=== PATIENT | male | born 1965 | race African-American/Black ===

== ENCOUNTER 2020-09-11 21:43 | Inpatient (IN) | payer OTHER ==
[~2020-09-11] VITALS: Ht 193 cm; Wt 128.8 kg
[2020-09-11 21:45] VITALS: BP 114/59
[2020-09-11 22:10] LABS: HEMATOCRIT 27.6 % (42.0-52.0); HEMOGLOBIN 8.7 gm/dL (14.0-18.0); MCHC 31.6 g/dL (28.0-37.0); MCV 85.4 fL (80.0-100.0); PLATELET COUNT 207 thou/uL (150-400); RBC 3.23 mil/uL (4.50-6.00); RDW 16.9 % (10.5-14.5); WBC 18.1 thou/uL (4.0-11.0)
[2020-09-11 22:19] LABS: CALCIUM 8.6 mg/dL (8.5-10.1); CREATININE 5.9 mg/dL (0.7-1.3); POTASSIUM 4.7 mmol/L (3.5-5.1)
[2020-09-11 22:28] LABS: BE(vivo) -5.3 mmol/L (-2 to +3); HCO3 19.1 mmol/L (22.0-26.0); PCO2 33.3 mmHg (35.0-45.0); PO2 76.9 mmHg (80.0-100.0); pH 7.377 (7.360-7.450); sO2 95.3 % (92.0-98.0)
[2020-09-11 22:29] LABS: URINE BILIRUBIN NEGATIVE (Negative); URINE BLOOD 3+ (Negative); URINE CLARITY SL CLOUDY; URINE COLOR YELLOW; URINE GLUCOSE-RANDOM* TRACE (Negative); URINE KETONES NEGATIVE (Negative); URINE LEUKOCYTES-REFLEX NEGATIVE (Negative); URINE NITRITE-REFLEX NEGATIVE (Negative); URINE PROTEIN (DIPSTICK) 3+ (Negative); URINE SPECIFIC GRAVITY 1.025 (1.005-1.035); URINE UROBILINOGEN 0.2 E.U./dl (0.2-1.0)
[2020-09-11 22:44] LABS: BACTERIA-REFLEX 1-9 Few /HPF (None Seen); CRYSTALS None Seen /LPF (None Seen); HYALINE CASTS 4-10 Moderate /LPF (None Seen); MUCUS >6 Heavy strn/LPF (None Seen); SQUAMOUS 0-3 Few /LPF (0-3); URINE WBC-REFLEX 0-5 Rare /HPF (0-5)
[2020-09-11 22:50] LABS: ABSOLUTE NEUTROPHILS 14.8 thou/uL (1.4-8.2); ANISOCYTOSIS 1+; PLATELET ESTIMATE NORMAL; POIKILOCYTOSIS 1+
[2020-09-12] VITALS (34 sets, daily range): BP systolic 120–158; BP diastolic 64–96
[2020-09-12 03:39] LABS: APTT 37.5 Seconds (24.5-32.8); INR 1.03; PROTIME 11.2 Seconds (10.5-12.1)
[2020-09-12 03:42] LABS: CALCIUM 8.3 mg/dL (8.5-10.1); CREATININE 6.1 mg/dL (0.7-1.3); POTASSIUM 5.2 mmol/L (3.5-5.1)
[2020-09-12 04:33] LABS: FIBRINOGEN > 860 mg/dL (201-437)
[2020-09-12 07:27] LABS: ABSOLUTE NEUTROPHILS 13.5 thou/uL (1.4-8.2); BASOPHILS 0.2 % (0.0-2.0); EOSINOPHILS 0.1 % (0.0-3.0); HEMOGLOBIN 7.5 gm/dL (14.0-18.0); LYMPHOCYTES 4.9 % (24.0-44.0); MCH 26.8 pg (26.0-34.0); MCHC 31.5 g/dL (28.0-37.0); MCV 85.3 fL (80.0-100.0); MONOCYTES 10.4 % (1.0-8.0); PLATELET COUNT 180 thou/uL (150-400); POLYS 84.4 % (36.0-66.0); RBC 2.81 mil/uL (4.50-6.00); RDW 17.5 % (10.5-14.5); WBC 15.9 thou/uL (4.0-11.0)
[2020-09-12 07:38] LABS: CALCIUM 7.4 mg/dL (8.5-10.1); CREATININE 5.8 mg/dL (0.7-1.3); POTASSIUM 4.9 mmol/L (3.5-5.1)
[2020-09-12 07:44] LABS: ALBUMIN 1.4 g/dL (3.4-5.0); TOTAL BILIRUBIN 0.3 mg/dL (0.2-1.0); TOTAL PROTEIN 5.9 g/dL (6.4-8.2)
--- NOTE | 2020-09-12 08:07 | NUR ---
AT 0200 received pt from ER, and contiuned care, admission assessments documented,IV fluids and insulin drip started, pratt inserted, labs drawn, following sepsis protocol.Pt febrile and shivering, tylenol supp given. Pt drowsy but arousable , able to follow commands, though forgetful.
[2020-09-12] MEDS ORDERED: ADVAIR 250-501 EACH INH (08:34)
[2020-09-12] MEDS ORDERED: ACETAMINOPHEN325 M1 PO (08:34)
[2020-09-12] MEDS ORDERED: LIPITOR40 MG PO (08:35)
[2020-09-12] MEDS ORDERED: AMLODIPINE BESY10 MG PO (08:35)
[2020-09-12] MEDS ORDERED: BENZTROPINE ME0.5 MG PO (08:36)
[2020-09-12] MEDS ORDERED: CHILDREN'S ZYRT10 M1 PO (08:37)
[2020-09-12] MEDS ORDERED: CLOZAPINE200 MG PO (08:38)
[2020-09-12] MEDS ORDERED: CATAPRES0.2 MG PO (08:38)
[2020-09-12] MEDS ORDERED: GABAPENTIN600 M1 PO (08:39)
[2020-09-12] MEDS ORDERED: HALDOL DECAN50 MG/M1 IM (08:41)
[2020-09-12] MEDS ORDERED: HYDRALAZINE 5050 MG PO (08:42)
[2020-09-12] MEDS ORDERED: IPRAT-ALBUT 0.5-3 ML INH (08:43)
[2020-09-12] MEDS ORDERED: LEVEMIR FL100 UNIT/2 SUBQ ×2 (08:44→08:45)
[2020-09-12] MEDS ORDERED: MEDROXYPROGESTER5 MG PO (08:46)
[2020-09-12] MEDS ORDERED: METOPROLOL TART25 MG PO (08:47)
[2020-09-12] MEDS ORDERED: MILK OF MA2400 MG/11 PO (08:47)
[2020-09-12] MEDS ORDERED: NOVOLOG100 UNIT/1 SUBQ ×2 (08:49→08:53)
[2020-09-12] MEDS ORDERED: MIRALAX17 GM PO (08:50)
[2020-09-12] MEDS ORDERED: PROAIR HFA8.5 GM INH (08:51)
[2020-09-12] MEDS ORDERED: SENNA8.6 MG PO (09:03)
[2020-09-12] MEDS ORDERED: STOOL SOFTENER100 M1 PO (09:04)
[2020-09-12] MEDS ORDERED: VISTARIL 25 MG25 M1 PO (09:05)
[2020-09-12] MEDS ORDERED: VITAMIN D250 MCG PO (09:09)
[2020-09-12] MEDS ORDERED: VITAMIN B-1100 M2 PO (09:09)
--- NOTE | 2020-09-12 11:07 | NUR ---
VAT CONSULTED TO PLACE CVL. RIGHT IJ 6FR TL JACC PLACED, TRIMMED 25 AND INSERTED 19CM. CXR FOR TIP LOCATION CONFIRMATION. RADIOLOGY REPORTS THAT TIP OVERLIES RIGHT ATRIUM. WILL PULL BACK 2CM AND RE-XRAY. PT TOLERATED WELL.
--- NOTE | 2020-09-12 11:24 | EKG ---
[address] [address] ELECTROCARDIOGRAM REPORT Name: ARAVIND MASSEY Room #: 238-P ADM IN M.R.#: [id number] Admission: 09/11/20 Attend Phys: Lennox Zepeda MD Discharge: Date of : 65 Report #: [id number] [facility] ED Test Date: 2020-09-11 Test Time: 22:06:55 Pat Name: ARAVIND MASSEY Department: Room: 238 Gender: M Western Philosophy Professor: : 1965 Requested By: Mariann Tapia Order Number: [id number] MD: Diogo Stein Measurements Intervals [place] Rate: 106 P: 48 IA: 129 QRS: 16 QRSD: 81 T: 35 QT: 321 QTc: 427 Interpretive Statements Sinus tachycardia No previous ECG available for comparison Electronically Signed On 09-12-2020 11:24:06 CDT by Diogo Stein [email or web address] <ELECTRONICALLY SIGNED> By: Diogo Stein MD 09/12/20 1124 [id number] Diogo Stein MD /EPI
[2020-09-12 11:27] LABS: ALBUMIN 1.4 g/dL (3.4-5.0); CALCIUM 7.8 mg/dL (8.5-10.1); CREATININE 5.9 mg/dL (0.7-1.3); PHOSPHORUS 3.7 mg/dL (2.6-4.7); POTASSIUM 5.1 mmol/L (3.5-5.1)
[2020-09-12 12:38] LABS: URINE BILIRUBIN NEGATIVE (Negative); URINE BLOOD 3+ (Negative); URINE CLARITY SL CLOUDY; URINE COLOR YELLOW; URINE GLUCOSE-RANDOM* TRACE (Negative); URINE KETONES NEGATIVE (Negative); URINE LEUKOCYTES NEGATIVE (Negative); URINE NITRITE NEGATIVE (Negative); URINE PROTEIN (DIPSTICK) 2+ (Negative); URINE UROBILINOGEN 0.2 E.U./dl (0.2-1.0)
[2020-09-12 12:48] LABS: PROT/CREAT RATIO 4.7; URINE CREATININE-RANDOM* 61.9 mg/dL
[2020-09-12 12:54] LABS: SQUAMOUS None Seen /LPF (0-3); URINE RBC >20 Many /HPF (NONE SEEN)
[2020-09-12 12:57] LABS: AMORPHOUS URATES Moderate /LPF (None Seen); CASTS None Seen /LPF (None Seen)
[2020-09-12 22:35] LABS: URINE BILIRUBIN NEGATIVE (Negative); URINE BLOOD 3+ (Negative); URINE CLARITY CLOUDY; URINE COLOR YELLOW; URINE GLUCOSE-RANDOM* NEGATIVE (Negative); URINE KETONES NEGATIVE (Negative); URINE LEUKOCYTES-REFLEX NEGATIVE (Negative); URINE NITRITE-REFLEX NEGATIVE (Negative); URINE PROTEIN (DIPSTICK) 3+ (Negative); URINE UROBILINOGEN 0.2 E.U./dl (0.2-1.0)
[2020-09-12 23:01] LABS: CELLULAR CASTS 0-3 Few /LPF (None Seen); COARSE GRANULAR CASTS 4-10 Moderate /LPF (None Seen); CRYSTALS None Seen /LPF (None Seen); FINE GRANULAR CASTS 0-3 Few /LPF (None Seen); HYALINE CASTS 0-3 Few /LPF (None Seen); MUCUS 0-3 Light strn/LPF (None Seen); SQUAMOUS 0-3 Few /LPF (0-3); URINE RBC >20 Many /HPF (NONE SEEN); URINE WBC-REFLEX 0-5 Rare /HPF (0-5)
[2020-09-13] VITALS (23 sets, daily range): BP systolic 122–176; BP diastolic 57–131
[2020-09-13 05:47] LABS: ABSOLUTE NEUTROPHILS 11.8 thou/uL (1.4-8.2); BASOPHILS 0.1 % (0.0-2.0); EOSINOPHILS 0.3 % (0.0-3.0); HEMOGLOBIN 7.5 gm/dL (14.0-18.0); LYMPHOCYTES 4.6 % (24.0-44.0); MCHC 31.5 g/dL (28.0-37.0); MCV 85.7 fL (80.0-100.0); MONOCYTES 9.2 % (1.0-8.0); PLATELET COUNT 188 thou/uL (150-400); POLYS 85.8 % (36.0-66.0); RBC 2.79 mil/uL (4.50-6.00); RDW 17.2 % (10.5-14.5); WBC 13.8 thou/uL (4.0-11.0)
[2020-09-13 05:57] LABS: CALCIUM 8.2 mg/dL (8.5-10.1); POTASSIUM 5.1 mmol/L (3.5-5.1)
--- NOTE | 2020-09-13 07:35 | NUR ---
PT A/O X2-3 WITH CONFUSION AND ANXIETY.FOLLOWS COMMANDS APPROPRIATELY PT HAVING INTERMITTENT EPISODES OF ANXIETY,BECOMES TACHYCARDIAC,HYPERTENSIVE AND TACHYPNEIC.ALSO NOTED CONSTANT NPC COUGH ALONG WITH WHEEZING THAT IS REQUIRING NEB TX.BREAST TRIMMER NOTIFIED,MEDS ORDERED,SEE JAMES ON MONITOR.ON O2 AT 2LITERS PNC.SATS [place].HANNY DD,LARGE AMOUNT OF URINE >1300.SOME OF THE HOME MEDS RESUMED.ASSESSMENT COMPLETED COMPLETED.WILL CONT TO MONITOR.
--- NOTE | 2020-09-13 08:00 | NUR ---
ASSUMMED CARE OF THIS PATIENT FROM ELENA AVERY AT 0700, PATIENT IS PULLING OFF O2 UNCOOPERATIVE, NON ESSENTIAL TREMORS NOTED,
--- NOTE | 2020-09-13 10:00 | NUR ---
O2 TITRATED PATIENT DESATING INTO THE UPPER 80'S. INSPIRATORY AND EXPIRATORY WHEEZING NOTED. COUGHING. PULLING OFF O2. REMIAINS UNCOOPERATIVE.
--- NOTE | 2020-09-13 12:20 | NUR ---
RT CALLED PATIENT RESP STATUS IS WORSENING, INSPIRATORY AND EXPIRATORY WHEEZING, UNCOOPERATIVE AND CONTINUALLY PULLING OFF O2, ATTEMPT TO REDIRECT
--- NOTE | 2020-09-13 14:18 | NUR ---
PATIENT PULLED OUT CENTRAL LINE AND O2 OFF. PRESSURE HELD AT SITE AND PATIENT PLACED ON 100% NRB MASK. DR SWAN NOTIFIED AND ORDERS RECEIVED. SOLU MEDROL GIVEN. PATIENT DOZES FOR A FEW MINUTES AND THEN IS PULLING OFF O2 AGAIN AND DESATING INTO THE 80'S
--- NOTE | 2020-09-13 15:10 | NUR ---
VAT CONSULTED FOR REPLACEMENT OF CVAD,SINCE PT PULLED IT OUT . PT REFUSED BECAME VERY AGGITATED AND DYSPNEIC. PT HAS PIV SO PLACED 2ND PIV. PT TOLERATED WELL.
--- NOTE | 2020-09-13 23:46 | NUR ---
PT BECOMING MORE RESTLESS AND UNDIRECTABLE,REMOVING OXYGEN CANNULA,O2 SATURATION POBE,IV LINES AND EVEN TELE.PT TRYING TO GET OUT OF THE BED FREQUENTLY REQUIRING RNS TO BE THERE ALMOST ALL THE TIME.HE BECOMES TACHYCARDIAC, TACHYPNEIC, AND AGITATED ADN YELLS OUT TO STAFF. .COLLEGE AND CAREER COUNSELOR NOTIFIED,ANXIETY MEDS GIVEN W/O ANY SIGNIFICANT CHANGE.RESTRAINTS APPLIED D/T PT COMPRISING MEDICAL HEALTH BY REMOVING OXYGEN CANNULA AND DESATS TO 70S AND HAVE INCREASED WHEEZING.REORIENTED SEVERAL TIMES BUT CONTINUES TO DO THE SAME THINGS.CURRENTLY RESTING IN BED,CALM AND QUIET.
[2020-09-14] VITALS (23 sets, daily range): BP systolic 117–189; BP diastolic 57–121
[2020-09-14 02:39] LABS: CALCIUM 8.3 mg/dL (8.5-10.1)
[2020-09-14 02:47] LABS: POTASSIUM 6.3 mmol/L (3.5-5.1)
[2020-09-14 05:49] LABS: ABSOLUTE NEUTROPHILS 18.1 thou/uL (1.4-8.2); BASOPHILS 0.3 % (0.0-2.0); HEMATOCRIT 25.2 % (42.0-52.0); HEMOGLOBIN 7.9 gm/dL (14.0-18.0); LYMPHOCYTES 3.7 % (24.0-44.0); MCH 26.9 pg (26.0-34.0); MCHC 31.5 g/dL (28.0-37.0); MCV 85.4 fL (80.0-100.0); MONOCYTES 1.5 % (1.0-8.0); PLATELET COUNT 218 thou/uL (150-400); POLYS 94.5 % (36.0-66.0); RBC 2.95 mil/uL (4.50-6.00); RDW 17.7 % (10.5-14.5); WBC 19.2 thou/uL (4.0-11.0)
[2020-09-14 06:57] LABS: POTASSIUM 6.3 mmol/L (3.5-5.1)
[2020-09-14 07:02] LABS: PLATELET ESTIMATE NORMAL
--- NOTE | 2020-09-14 11:57 | NUR ---
Chart review. Discussed during am rounds and los with hospitalist. LAWANDA, from [facility]. has NIKKIE Martini, office # [phone], cell # [phone]. He was able to dress himself, able to stand and transfer. Able to make his needs know. CM spoke with NIKKIE office, they were notified by [facility] when he was sent to hospital. Noted before am rounds, he was needing some assist with breakfast rt upper bilat ext with shakiness. o2 per nasal cannula. Will cont following as needed for dc needs.
--- NOTE | 2020-09-14 12:21 | EKG ---
[address] [place] [place] [address] ELECTROCARDIOGRAM REPORT Name: ARAVIND MASSEY Room #: 238-P ADM IN M.R.#: [id number] Admission: 09/11/20 Attend Phys: Lennox Zepeda MD Discharge: Date of : 65 Report #: [id number] [facility] Test Date: 2020-09-14 Test Time: 09:51:21 Pat Name: ARAVIND MASSEY Department: Room: 238 P Gender: M Certified Ophthalmic Technologist: KRYSTAL : 1965 Requested By: Trupti Momin Order Number: [id number] MD: Koffi Jolley Measurements Intervals [place] Rate: 85 P: 19 NC: 127 QRS: 7 QRSD: 94 T: 18 QT: 393 QTc: 468 Interpretive Statements Sinus rhythm Compared to ECG 09/11/2020 22:06:55 ST (T wave) deviation now present Sinus tachycardia no longer present Electronically Signed On 09-14-2020 12:21:06 CDT by Koffi Jolley [email or web address] <ELECTRONICALLY SIGNED> By: Koffi Jolley MD, [facility] 09/14/20 1221 0 Koffi Jolley MD, FACC /EPI
--- NOTE | 2020-09-14 12:33 | NUR ---
Pt only able to take 2 bites of lunch before coughing uncontrollably - had to spit out food. Concern for aspiration/need for speech consult in future.
[2020-09-14 15:32] LABS: CALCIUM 8.9 mg/dL (8.5-10.1); CREATININE 5.8 mg/dL (0.7-1.3); POTASSIUM 5.4 mmol/L (3.5-5.1)
--- NOTE | 2020-09-14 22:54 | NUR ---
Patient out of control, trying to remove all medical equipment and climbing out of bed. Orders received from NASREEN Lazaro for lorazepam. Unable to give though due to patient had removed all IV access. New orders received for IM medication. Patient calm and sedated now. Will continue to monitor.
[2020-09-15] VITALS (23 sets, daily range): BP systolic 128–172; BP diastolic 79–131
[2020-09-15 04:45] LABS: ABSOLUTE NEUTROPHILS 18.1 thou/uL (1.4-8.2); BASOPHILS 0.2 % (0.0-2.0); HEMOGLOBIN 7.9 gm/dL (14.0-18.0); LYMPHOCYTES 4.1 % (24.0-44.0); MCH 27.7 pg (26.0-34.0); MCHC 32.9 g/dL (28.0-37.0); MCV 84.2 fL (80.0-100.0); PLATELET COUNT 276 thou/uL (150-400); POLYS 92.7 % (36.0-66.0); RBC 2.84 mil/uL (4.50-6.00); RDW 17.4 % (10.5-14.5); WBC 19.5 thou/uL (4.0-11.0)
--- NOTE | 2020-09-15 05:39 | NUR ---
This RN and 3 other various RN's attempted to place peripheral IVs and none were successful. Will call IV team for line placement when they arrive.
[2020-09-15 09:34] LABS: ALBUMIN 1.6 g/dL (3.4-5.0); CALCIUM 9.4 mg/dL (8.5-10.1); CREATININE 6.2 mg/dL (0.7-1.3); POTASSIUM 4.9 mmol/L (3.5-5.1)
--- NOTE | 2020-09-15 09:49 | NUR ---
Nutrition: pt admitted with PNA, sepsis. Seen per dx. PMH: DM2, HTN, COPD, CKD4, schizophrenia. From a facility. No weight hx. Requires feeding due to tremors. Eats fairly well per nsg. Did have episode of choking/coughing after eating hamburger yesterday. ST evaled and diet downgraded to Pureed nectar thick for mild/moderate dysphagia. BG 291-38, on high dose SSI, glargine, also steroids aggravating BG. Magic cup was ordered, RD will D/C due to high sugar content and acceptable intake of meals. No weight hx. High K+ level, on K+ restriction also. Re-checking today. Consider low nutrition risk.
--- NOTE | 2020-09-15 11:40 | NUR ---
Pt extremely agitated - trying to get out of bed, yelling that RN's "are trying to kill me. I'm going to tell my family to come kill you after I'm ." PRN Azul given, Dr. Katelyn cummings.
--- NOTE | 2020-09-15 16:14 | NUR ---
BPCO letter and preferred network list provided to patient chart, patient in OR and no family present, lives at [facility] setting
[2020-09-16] VITALS (24 sets, daily range): BP systolic 128–178; BP diastolic 79–101
[2020-09-16 01:36] LABS: HEMOGLOBIN 8.2 gm/dL (14.0-18.0); MCHC 32.7 g/dL (28.0-37.0); MCV 82.4 fL (80.0-100.0); PLATELET COUNT 310 thou/uL (150-400); RBC 3.03 mil/uL (4.50-6.00); RDW 16.9 % (10.5-14.5)
[2020-09-16 02:43] LABS: ABSOLUTE NEUTROPHILS 13.6 thou/uL (1.4-8.2)
[2020-09-16 02:44] LABS: ANISOCYTOSIS 1+; PLATELET ESTIMATE NORMAL; POIKILOCYTOSIS 1+
--- NOTE | 2020-09-16 08:24 | NUR ---
ASSUMED CARE OF PT AT 0700, PT IS AGITATED, PULLING AT LINES, TRYING TO GET OUT OF BED, SPITTING OUT HIS MEDICATIONS, AND CALLING THE STAFF NAMES.
[2020-09-16 09:23] LABS: CALCIUM 9.1 mg/dL (8.5-10.1); CREATININE 5.9 mg/dL (0.7-1.3); POTASSIUM 4.3 mmol/L (3.5-5.1)
--- NOTE | 2020-09-16 10:58 | NUR ---
Patient during smash mask treatment continue to thrash around moving head from side to side. patient curse at RT and threaten to cause physical harm to RT. patient stated he didnt want therapy and to leave him alone.
[2020-09-17] VITALS (11 sets, daily range): BP systolic 127–187; BP diastolic 71–104
[2020-09-17 07:51] LABS: ALBUMIN 1.7 g/dL (3.4-5.0); CALCIUM 8.8 mg/dL (8.5-10.1); CREATININE 5.5 mg/dL (0.7-1.3); PHOSPHORUS 4.8 mg/dL (2.5-4.9); POTASSIUM 4.7 mmol/L (3.5-5.1)
[2020-09-17 09:22] LABS: HEMATOCRIT 26.6 % (42.0-52.0); HEMOGLOBIN 8.2 gm/dL (14.0-18.0); MCH 26.5 pg (26.0-34.0); MCHC 30.9 g/dL (28.0-37.0); MCV 85.7 fL (80.0-100.0); PLATELET COUNT 356 thou/uL (150-400); RBC 3.11 mil/uL (4.50-6.00); RDW 17.6 % (10.5-14.5)
[2020-09-17 10:38] LABS: ABSOLUTE NEUTROPHILS 10.9 thou/uL (1.4-8.2); METAMYELOCYTES 1 %
[2020-09-17 10:39] LABS: PLATELET ESTIMATE NORMAL
--- NOTE | 2020-09-17 13:32 | NUR ---
Updates faxed to [facility] with [facility] face sheet. fax # [phone], phone # [phone]
--- NOTE | 2020-09-17 18:23 | NUR ---
PT REMAINS UNRESTRAINED SINCE 0900. PT INTERMITTENTLY AGITATED, BUT REDIRECTABLE. HIGH OBSERVATION NEEDED DURING MEALS DUE TO ASPIRATION RISK. PT IN GUARDED CONDITION BUT PROGRESSING SLOWLY TOWARD GOALS.
--- NOTE | 2020-09-17 19:10 | NUR ---
AT APPX 1745, PT PROGRESSIVELY BECOMING INCREASINGLY AGITATED, RESTLESS. PRECEDEX TITRATED TO EFFECT. ATIVAN AND VISTARIL GIVEN PRN. AT APPX 1830, PT MORE CALM, RESTING QUIETLY, RESPIRATIONS EVEN AND UNLABORED.
[2020-09-18] VITALS (23 sets, daily range): BP systolic 135–192; BP diastolic 74–123
[2020-09-18 02:40] LABS: HEMATOCRIT 25.7 % (42.0-52.0); HEMOGLOBIN 8.2 gm/dL (14.0-18.0); MCV 84.4 fL (80.0-100.0); PLATELET COUNT 349 thou/uL (150-400); RBC 3.05 mil/uL (4.50-6.00); RDW 17.3 % (10.5-14.5); WBC 17.1 thou/uL (4.0-11.0)
[2020-09-18 03:31] LABS: ALBUMIN 1.5 g/dL (3.4-5.0); CALCIUM 8.9 mg/dL (8.5-10.1); CREATININE 4.9 mg/dL (0.7-1.3); PHOSPHORUS 4.7 mg/dL (2.5-4.9); POTASSIUM 4.5 mmol/L (3.5-5.1)
--- NOTE | 2020-09-18 04:54 | NUR ---
ASSUMED CARE AT 1900. PT ALERT TO SELF, HAS ASKED "WHAT STORE DID THIS USE TO BE?", AND THOUGHT [facility] WAS LEAKING FROM [place]IL[place]. TOSSES AND TURNS IN BED. FREQ DRY, HACKING COUGH; GAVE COUGH SYRUP THIS MORNING. TITRATING PRECEDEX DOWN GRADUALLY OVERNIGHT. GETS ANXIOUS AND PULLS AT GOWN/BEDDING, TAKES A FEW MINUTES BUT EVENTUALLY REDIRECTABLE SO FAR THIS SHIFT. SLOW PROGRESSION TOWARDS GOALS, WILL CONTINUE TO MONITOR.
[2020-09-18 10:43] LABS: ABSOLUTE NEUTROPHILS 13.9 thou/uL (1.4-8.2); METAMYELOCYTES 3 %
[2020-09-18 10:44] LABS: ANISOCYTOSIS 1+
--- NOTE | 2020-09-18 12:05 | NUR ---
Discussed during am rounds and los. No anticipated dc back to [facility] over the weekend. Will cont following as needed for dc needs.
--- NOTE | 2020-09-18 12:30 | NUR ---
PAGED , RE HTN. NO RESPONSE [phone] BROUSSARD (RENAL) REGARDING HTN. ORDERS GIVEN.
--- NOTE | 2020-09-18 14:36 | NUR ---
DR. GONZALEZ HERE. UPDATE GIVEN. ORDERS GIVEN.
--- NOTE | 2020-09-18 17:00 | NUR ---
PT VIOLENT GETTING OUT OF BED. SECURITY AND 3 RNS HAD TO GET HIM BACK TO BED. HE JUST KEPT SAYING WE'RE KILLING HIM. DONT LET ME . RESEDATED ON PRECEDEX, RESTRAINED. DR. CRESPO AND [facility] CALLED. ATIVAN 1.5MG SIVP GIVEN AND PT FINALLY SETTLED DOWN. VSS.
--- NOTE | 2020-09-18 18:57 | NUR ---
PT NOT MOVING TOWARDS GOALS. RESEDATED ON PRECEDEX.
[2020-09-19] VITALS (29 sets, daily range): BP systolic 118–179; BP diastolic 62–113
[2020-09-19 04:23] LABS: ALBUMIN 1.5 g/dL (3.4-5.0); CALCIUM 8.4 mg/dL (8.5-10.1); CREATININE 4.3 mg/dL (0.7-1.3); PHOSPHORUS 5.1 mg/dL (2.5-4.9); POTASSIUM 4.1 mmol/L (3.5-5.1)
--- NOTE | 2020-09-19 19:03 | NUR ---
PT ALERT AND ORIENTED TIMES THREE. VSS, IVF AND PRECEDEX GTT INFUSING. PT DNIES PAIN/SOA. PT WORKED WELL WITH PT/OT TODAY. PT TOLERATES MEDS AND MEALS. PT SLOWLY PROGRESSING TOWRADS POC GOALS.
[2020-09-20] VITALS (18 sets, daily range): BP systolic 105–156; BP diastolic 53–114
--- NOTE | 2020-09-20 03:33 | NUR ---
ASSESSMENT: PT WAS VERY AGITATED AT THE BEGINNING OF THE SHIFT. CONTINUOUSLY PULLED AT MONITOR WIRES, GAMINO AND ATTEMPTED TO GET OOB ON SEVERAL OCCASSIONS. WAS ALLOWED TO SAT ON BSC TO HAVE A BM. ONCE BACK IN BED PT WANTED TO SAT UP STATING THAT HIS CHEST HURT (EKG WAS DONE, SR) ALSO C/O ABD PAIN. PT HAD 2 LARGE BM'S. NAEL SOFT WRIST RESTRAINTS WERE INITIATED AT 2105 FOR PT'S SAFETY. VSS, AFEBRILE. NO NEW INJURIES. PRN HALDOL WAS ALSO GIVEN R/T SEVERE ANXIETY. SLOW PROGRESS TOWARDS DC GOALS. WILL CONTINUE TO MONITOR.
[2020-09-20 04:32] LABS: ALBUMIN 1.5 g/dL (3.4-5.0); CALCIUM 8.3 mg/dL (8.5-10.1); PHOSPHORUS 4.5 mg/dL (2.6-4.7); POTASSIUM 3.6 mmol/L (3.5-5.1)
--- NOTE | 2020-09-20 13:32 | NUR ---
PATIENT ON ROOM AIR MAINTAINING SATURATION. PATIENT COOPERATIVE AND INTERACTIVE TODAY WHILE ADMINISTERING BREATHING TREATMENTS FROM [phone]
--- NOTE | 2020-09-20 18:29 | NUR ---
PT ALERT AND ORIENTED. PRN PAIN MED GIVEN WITH PARTIAL RELIEF. PRECEDEX AND RESTRAINTS D/C. SR/ST ON TELE. RT TREATMENT PROVIDED ORDERED. NO CONCERNS AT THIS TIME. PT PROGRESSING WELL TOWARDS DISCHARGE GOAL.
[2020-09-21] VITALS (18 sets, daily range): BP systolic 98–150; BP diastolic 48–93
[2020-09-21 04:47] LABS: ALBUMIN 1.6 g/dL (3.4-5.0); CALCIUM 8.3 mg/dL (8.5-10.1); PHOSPHORUS 4.8 mg/dL (2.6-4.7); POTASSIUM 3.8 mmol/L (3.5-5.1)
--- NOTE | 2020-09-21 04:56 | NUR ---
Pt. very restless and trashes around on bed at HS despite giving scheduled meds. Very hard to redirect , pulled out IV ,refused to wear gown and constantly taking off BP cuff and sat probe. Lorazepam po did not help , prn haldol given and he eventually settled down and calm down. LACQUERER notified. He slept from 2330 to 0415. He is awake but calm and redirectible at this time. Tolerating room air well with O2 sat up to 100%. He has loose cough and able to spit up phlegm. C/O leg pain last night from frequent scooting down on the bed. Able to scoot himself up on the bed and no further c/o leg pain since he repositioned himself. Refused to wear SCD's.
--- NOTE | 2020-09-21 07:12 | EKG ---
[address] [address] ELECTROCARDIOGRAM REPORT Name: ARAVIND MASSEY Room #: 238-P ADM IN M.R.#: [id number] Admission: 09/11/20 Attend Phys: Lennox Zepeda MD Discharge: Date of : 65 Report #: [id number] [facility] Test Date: 2020-09-19 Test Time: 20:48:19 Pat Name: ARAVIND MASSEY Department: Room: 238 P Gender: M Chain Offbearer: Cheo BOOTHE RN : 1965 Requested By: Lennox Zepeda Order Number: [id number] : Koffi Jolley Measurements Intervals [place] Rate: 99 P: 18 MT: 133 QRS: 26 QRSD: 83 T: 32 QT: 357 QTc: 459 Interpretive Statements Sinus rhythm Compared to ECG 09/14/2020 09:51:21 No significant changes Electronically Signed On 09-21-2020 7:12:14 CDT by Koffi Jolley [email or web address] <ELECTRONICALLY SIGNED> By: Koffi Jolley MD, [facility] 09/21/20711 47 2048 Koffi Jolley MD, [facility] /EPI
--- NOTE | 2020-09-21 14:33 | NUR ---
Provided updates to PA office, and sent clinical updates to [facility]. Diet with nectar thick. Noted during am rounds today he was working with Physical therapy to sit on edge of bed for breakfast. Will cont following as needed for dc needs. Possible be able to move out of icu soon.
--- NOTE | 2020-09-21 17:30 | NUR ---
PT TRANSFERED TO FLOOR VIA WC. ALL BELONGINGS WITH PT. PT SITTING UP IN CHAIR EATING DINNER. DENIES PAIN OR SOB.
--- NOTE | 2020-09-21 19:37 | NUR ---
PT WAS TRANSFED FROM ICU AT 1800PM, PT IS A&OX2( PERSON AND PLACE), BUT HE IS CONFUSED AT TIME, PT IS HIGH RISK FOR FALL , PT IS CONTINUING D5 @ 150ML/HR, PT HAD VOID 300ML URINE AT 1830PM, RN HAS REPORTED TO NEXT SHIFT TO KEEP EYE ON PT.
[2020-09-22 05:57] LABS: ALBUMIN 1.6 g/dL (3.4-5.0); CALCIUM 8.1 mg/dL (8.5-10.1); CREATININE 3.5 mg/dL (0.7-1.3); PHOSPHORUS 4.3 mg/dL (2.5-4.9); POTASSIUM 3.7 mmol/L (3.5-5.1)
[2020-09-22 06:32] VITALS: BP 126/71
[2020-09-22 07:17] VITALS: BP 127/83
--- NOTE | 2020-09-22 08:06 | NUR ---
Shift change bedside report, pt. very restless and wants to get out of bed. Took monitor off and dc'd his IV on left FA. Hard to redirect and very impulsive. HS meds given early and prn ativan po also given. PUBLIC HEALTH ASSISTANT notified and order for sitter to stay with patient for safety. He slept fair then once awake he is very impulsive and wants to get out of bed. Voided per urinal then sitter stated he also voided on the bed and on the floor. Constantly taking off monitor. Pt. reoriented frequently , snacks provided. He tooks his meds with applesauce and drank nectar thick apple juice. Once he woke up this am he's asking for his breakfast.
--- NOTE | 2020-09-22 10:35 | NUR ---
Follow up: Pt sleeping at time of visit; one on one sitter present. Sitter/nursing staff report excellent intake at meals and pt often requesting more foods. On carb-controlled diet, mechanically altered/chopped with NTL. Remains on insulin, steroid, statin and antibiotics. D5 in place. K+ now WNL, Alb 1.6, BUN 42, Cr 3.5. BS 69-219 x 48 hrs. Pt requesting larger portions at meals, will give large portions protein and veg at meals. Remains low nutrition risk with good dietary intake.
[2020-09-22 12:35] VITALS: BP 144/74
[2020-09-22 15:33] VITALS: BP 125/76
--- NOTE | 2020-09-22 16:21 | NUR ---
ADRIANA reviewed chart and spoke with nursing and attending physician. Pt was transferred to from ICU. Pt had 1:1 sitter. Sitter discontinued this afternoon. Plan is for pt to discharge back to [facility] when medically stable. [place]. Pt has a public active directory administrator as his legal guardian. ADRIANA faxed updates to [facility]. ADRIANA is following to assist as needed with discharge planning.
--- NOTE | 2020-09-22 17:57 | NUR ---
RN ASSUMED PT'S CARE AT 0700AM, PT TRANSFERED FROM ICU YESTODAY, PT KNOWS HIS NAME , PT CAN FOLLOW SOME COMMANDS, BUT PT IS CONFUSED, PT'S IMPULSIVE HAS IMPROVED, PT'S SITTER PROVID HAD DC AT 1400PM, PT'S MEDICATIONS HAVE SOME CHANGED, PT'S VS ARE STABE BY THIS TIME, PT STILL IS HIGH FALL RISK, RN WILL REPORT TO NEXT SHIFT TO KEEP EYE ON PT.
[2020-09-22 19:12] VITALS: BP 123/69
[2020-09-23 03:21] VITALS: BP 108/70
[2020-09-23 04:07] LABS: ALBUMIN 1.6 g/dL (3.4-5.0); CALCIUM 7.8 mg/dL (8.5-10.1); CREATININE 3.8 mg/dL (0.7-1.3); PHOSPHORUS 3.9 mg/dL (2.5-4.9); POTASSIUM 4.5 mmol/L (3.5-5.1)
--- NOTE | 2020-09-23 05:05 | NUR ---
PT CALM, COOPERATIVE OVERNIGHT. NO AGITATION NOTED. IS IMPULSIVE AND WILL GET UP TO VOID WITHOUT CALLING DESPITE INSTRUCTION TO CALL FOR ASSISTANCE. FREQUENTLY PULLING TELEMTRY OFF. PULLED IV OUT WHEN GETTING OUT OF BED ONCE. DRANK SOME NECTAR THICK APPLE JUICE WITHOUT OBSERVABLE INCIDENT. MILD SOA NOTED WHEN OUT OF BED.
[2020-09-23 08:24] VITALS: BP 122/85
--- NOTE | 2020-09-23 15:28 | NUR ---
ADRIANA reviewed chart and spoke with nursing and attending physician. Pt is progressing towards goals for discharge. Discharge back to [facility] is anticipated for tomorrow. Renal may start pt on a new medication. ADRIANA faxed updates to [facility] and spoke with GLENAD Sierra at the facility. Confirmed they are able to take pt back tomorrow. ADRIANA spoke with Bernice at the public energy administrator's office to provide update. Per nursing, pt is asking to be moved to a facility closer to [place]. Bernice states they are aware of pt's request. Discharge ppwk to be faxed to [place] office ([phone]) when available. ADRIANA is following to assist as needed with discharge planning.
[2020-09-23 15:41] VITALS: BP 132/78
[2020-09-23 17:43] VITALS: BP 173/84
--- NOTE | 2020-09-23 18:22 | NUR ---
RN ASSUMED PT'S CARE AT 0700AM, PT KNOWS HIS NAME AND DAY, PT CAN FOLLOW MOST OF COMMANDS, BUT PT IS CONFUSED AND HE GETS OUT HIS BED WITHOUT CALL FOR HELP, PT IS HIGHF FALL RISK, PT HAS MOVED TO ROOM 351 CLOSING TO NURSING STATION, PT IS CONTINUING IV D5 @ 100ML/HR PER RENAL DR ORDER, PT'S VS ARE STABLE BY THIS TIME.
[2020-09-23 19:23] VITALS: BP 168/89
--- NOTE | 2020-09-24 02:36 | NUR ---
ASSESSMENT: PT REMAIN ALERT AND ORIENT TIMES THREE, FORGETFUL, IMPULSIVE AT TIMES. USES URINAL APPROPRIATELY. FORGETS AND ATTEMPTS TO GET OOB TO USE URINAL. REMINDED TO CALL FOR ASSISTANCE. VSS, AFEBRILE. NO INSULIN GIVEN THIS EVENING FOR BS OF 96. PT REFUSED LANTUS. PT DC'D LEFT FA IV. POSSIBLE DISCHARGE TO [facility] THIS AM. SR PER MONITOR. TOOK ALL PO MEDS WITHOUT DIFFICULTY. PROGRESSING WELL FOR DC. WILL CONTINUE TO MONITOR.
[2020-09-24 04:41] VITALS: BP 163/89
[2020-09-24 07:14] VITALS: BP 122/76
[2020-09-24 08:39] LABS: ALBUMIN 1.6 g/dL (3.4-5.0); CALCIUM 8.4 mg/dL (8.5-10.1); CREATININE 3.6 mg/dL (0.7-1.3); PHOSPHORUS 4.1 mg/dL (2.6-4.7); POTASSIUM 4.8 mmol/L (3.5-5.1)
[2020-09-24 09:54] VITALS: BP 122/76
--- NOTE | 2020-09-24 13:06 | NUR ---
DISCHARGE NOTE: ADRIANA reviewed chart and spoke with nursing and attending physician. Pt is medically stable for discharge back to [facility] today. ADRIANA spoke with GLENDA Sierra at [facility] who confirms they are able to accept pt back today. Awaiting final discharge ppwk at this time. [facility] will be able to provide transportation once d/c ppwk has been received. ADRIANA notified attending physician. Chart copy had been completed. ADRIANA spoke with Cherie in the public loan administrator's office (pt's legal guardian). Consent for pt to discharge back to [facility] obtained. ADRIANA is following to finalize discharge plan.
[2020-09-24] MEDS ORDERED: MUCINEX600 MG PO (13:34)
[2020-09-24] MEDS ORDERED: LANTUS SUBQ (13:34)
[2020-09-24] MEDS ORDERED: HUMALOG100 UNIT/1 SUBQ (13:34)
[2020-09-24] MEDS ORDERED: CLOZAPINE100 MG PO (13:34)
[2020-09-24] MEDS ORDERED: LORAZEPAM 0.50.5 MG PO (13:34)
[2020-09-24] MEDS ORDERED: AMOX TR-K400 MG/5 M PO (13:34)
[2020-09-24] MEDS ORDERED: Nicotine Transdermal TRANSDERM (13:34)
[2020-09-24] MEDS ORDERED: HALOPERIDOL 5 MG5 MG PO (13:34)
--- NOTE | 2020-09-24 16:25 | NUR ---
1400 DR. CENTENO PAGED ABOUT PT LOW BLOOD SUGAR, SW STATED HE IS AWARE AND IS OKAY WITH PT D/C AFTER STABLE BLOOD SUGAR. PT LAST BLOOD SUGAR CAME UP 138. ALERT AND ORIENTED X4. TRANSPORTATION HERE FOR PT, ALL BELNGINGS WITH PT. PAGE BRIAN TWICE TO GIVEN REPORT NO ANSWER.
== END 2020-09-24 15:00 | DRG 871 ==
LOC: ER 21:43 → EROBS 23:56 → ICU 23:56 → 3W 09-21 18:02
PROVIDERS: Emergency Medicine; Internal Medicine; Internal Medicine Nephrology; Internal Medicine Pulmonary Disease; Nurse Practitioner Family; Pediatrics; Specialist; ADMIT Hospitalist; ATTEND Hospitalist
PROC: 02H633Z Insertion of Infusion Device into Right Atrium, Percutaneous Approach (ICD-10-PCS; principal; 2020-09-12)
PROC: 5A0945A Assistance with Respiratory Ventilation, 24-96 Consecutive Hours, High Flow/Velocity Cannula (ICD-10-PCS; 2020-09-13)
DX: A41.1 Sepsis due to other specified staphylococcus (principal); J96.01 Acute respiratory failure with hypoxia; R65.21 Severe sepsis with septic shock; J69.0 Pneumonitis due to inhalation of food and vomit; G92 Toxic encephalopathy; N17.0 Acute kidney failure with tubular necrosis; N39.0 Urinary tract infection, site not specified; N18.4 Chronic kidney disease, stage 4 (severe); E87.2 Acidosis; E87.0 Hyperosmolality and hypernatremia; F05 Delirium due to known physiological condition; Z20.822 Contact with and (suspected) exposure to COVID-19; J44.9 Chronic obstructive pulmonary disease, unspecified; E11.22 Type 2 diabetes mellitus with diabetic chronic kidney disease; E78.5 Hyperlipidemia, unspecified; K59.00 Constipation, unspecified; I12.9 Hypertensive chronic kidney disease with stage 1 through stage 4 chronic kidney disease, or unspecified chronic kidney disease; E66.01 Morbid (severe) obesity due to excess calories; F20.9 Schizophrenia, unspecified; D63.1 Anemia in chronic kidney disease; E87.5 Hyperkalemia; J45.909 Unspecified asthma, uncomplicated; T38.0X5A Adverse effect of glucocorticoids and synthetic analogues, initial encounter; Y92.89 Other specified places as the place of occurrence of the external cause; Z88.6 Allergy status to analgesic agent; Z88.8 Allergy status to other drugs, medicaments and biological substances; Z68.34 Body mass index [BMI] 34.0-34.9, adult
CPT/HCPCS: 10078; 10203; 10779; 10879; 65040

== ENCOUNTER 2020-10-05 17:19 | Emergency (ER) | payer OTHER ==
[~2020-10-05] VITALS: Ht 185.4 cm; Wt 115.7 kg
--- NOTE | ~2020-10-05 | EMS ---
[address] [address] EMS Patient Care Report Name: ARAVIND MASSEY Room #: DEP JOSE M Burgos#: [id number] Admission: 10/05/20 Attend Phys: Discharge: 10/05/20 Date of : 65 Report #: [id number] THIS REPORT FOR: //name// Report Transmitted: 10/06/2020 13:26 EMS Care Summary [place], [place]/[facility] Incident [id number] @ 10/05/2020 16:51 Incident [address] [place] [address] Patient ARAVIND MASSEY Male, 54 Years 1965 Patient Address [address] [place] [address] Patient History Chronic Obstructive Pulmonary Disease (COPD),Diabetes,Hypertension (HTN),Morbid Obesity,Schizophrenia,Anemia,Constipation,Hyperkalemia,Chronic Kidney Disease, Patient Allergies Aspirin,[place] allergy, Patient Medications Haloperidol, Hydralazine, Clonidine, Gabapentin, Benztropine, Metoprolol, Novolog, Amlodipine, Atorvastatin, Levemir, Chief Complaint FACILITY CALLED DUE TO UNNORMAL BLOOD WORK Disposition Transported No Lights/[place] Dispatch Reason Sick Person Transported To [facility] Narrative M36 ARRIVED ON SCENE AND MADE CONTACT WITH THE PT AND NURSING STAFF IN THE [address] [address] EMS Patient Care Report Name: ARAVIND MASSEY Room #: DEP JOSE M Burgos#: [id number] Admission: 10/05/20 Attend Phys: Discharge: 10/05/20 Date of : 65 Report #: [id number] LOBBY. THE STAFF MEMBER EXPLAINED THAT THE PT'S BLOOD WORK HAD BEEN IRREGULAR AND WANTED HIM TO BE TRANSPORTED. VITALS WERE TAKEN. PT WAS AMBULATORY AND ABLE TO WALK TO THE STRETCHER AND SIT DOWN ON HIS OWN POWER. SEAT BELTS WERE APPLIED. PT WAS UNCHANGED EN ROUTE TO [facility]. UPON ARRIVAL AT THE HOSPITAL THE PT WAS ABLE TO WALK FROM THE STRETCHER TO THE ER BED WHERE THE RAILS WERE APPLIED. REPORT GIVEN TO NURSE. Initial Vitals @17:12P: 65,R: 15,BP: 154/88,Pain: 2/10,GCS: 15,CO: 7,SpO2: 97,Revised Trauma: 12, @17:08P: 69,R: 15,BP: 160/71,Pain: 2/10,GCS: 15,Revised Trauma: 12, Assessments @17:06MENTAL:Time Oriented,Person Oriented,Event Oriented,Place Oriented,SKIN:HEENT:Head/Face: No Abnormalities,Neck/Airway: No Abnormalities,LUNG SOUNDS:General: No Abnormalities,Left Upper: No Abnormalities,Right Upper: No Abnormalities,Left Lower: No Abnormalities,Right Lower: No Abnormalities,ABDOMEN:General: No Abnormalities,Left Upper: No Abnormalities,Right Upper: No Abnormalities,Left Lower: No Abnormalities,Right Lower: No Abnormalities,PELVIS//GI:No Abnormalities,EXTREMITIES:Capillary Refill: Right Upper: < 2 Sec,Left Arm: No Abnormalities,Right Arm: No Abnormalities,Left Leg: No Abnormalities,Right Leg: No Abnormalities,PULSE:Radial: 2+ Normal,NEURO:No Abnormalities, Impression Patient assist only Procedures @17:06BLS AssessmentResponse: Unchanged Timeline 16:50,Call Received 16:50,Dispatch Notified 16:51,Dispatched 16:52,En Route 17:03,On Scene 17:06,At Patient 17:06,BLS Assessment,Response: Unchanged 17:08,BP: 160/71 M,PULSE: 69,RR: 15 R,SPO2: Ox,ETCO2: ,BG: ,PAIN: 2,GCS: 15, 17:09,Depart Scene 17:12,BP: 154/88 M,PULSE: 65,RR: 15 R,SPO2: 97 Ox,ETCO2: ,BG: ,PAIN: 2,GCS: 15, 17:16,At Destination 17:23,Call Closed Disclaimer v1.1 Copyright 2020 [employer] [facility] [address] [place] [address] EMS Patient Care Report Name: ARAVIND MASSEY [id number] Admission: 10/05/20 Attend Phys: Discharge: 10/05/20 Date of : 65 Report #: [id number] This EMS Care Summary contains data elements from the applicable legal record (which may be displayed differently). It is designed to provide pertinent information for the following purposes: continuity of care, clinical quality, and state data reporting. The complete legal record is available to ED staff and administrators of the receiving hospital in [facility]'s Patient Tracker. All data is provided "as is."
[~2020-10-05 17:19] MED LIST: ACETAMINOPHEN325 M1 PO; ADVAIR 250-501 EACH INH; AMLODIPINE BESY10 MG PO; AMOX TR-K400 MG/5 M PO; BENZTROPINE ME0.5 MG PO; CATAPRES0.2 MG PO; CHILDREN'S ZYRT10 M1 PO; CLOZAPINE100 MG PO; CLOZAPINE200 MG PO; GABAPENTIN600 M1 PO; HALDOL DECAN50 MG/M1 IM; HALOPERIDOL 5 MG5 MG PO; HUMALOG100 UNIT/1 SUBQ; HYDRALAZINE 5050 MG PO; IPRAT-ALBUT 0.5-3 ML INH; LANTUS SUBQ; LEVEMIR FL100 UNIT/2 SUBQ; LIPITOR40 MG PO; LORAZEPAM 0.50.5 MG PO; MEDROXYPROGESTER5 MG PO; METOPROLOL TART25 MG PO; MILK OF MA2400 MG/11 PO; MIRALAX17 GM PO; MUCINEX600 MG PO; NOVOLOG100 UNIT/1 SUBQ; Nicotine Transdermal TRANSDERM; PROAIR HFA8.5 GM INH; SENNA8.6 MG PO; STOOL SOFTENER100 M1 PO; VISTARIL 25 MG25 M1 PO; VITAMIN B-1100 M2 PO; VITAMIN D250 MCG PO
[2020-10-05 17:49] LABS: ABSOLUTE NEUTROPHILS 3.2 thou/uL (1.4-8.2); BASOPHILS 0.5 % (0.0-2.0); HEMATOCRIT 21.9 % (42.0-52.0); HEMOGLOBIN 7.2 gm/dL (14.0-18.0); LYMPHOCYTES 28.4 % (24.0-44.0); MCH 28.1 pg (26.0-34.0); MCHC 32.7 g/dL (28.0-37.0); MONOCYTES 9.6 % (1.0-8.0); PLATELET COUNT 241 thou/uL (150-400); POLYS 56.5 % (36.0-66.0); RBC 2.55 mil/uL (4.50-6.00); RDW 17.7 % (10.5-14.5); WBC 5.7 thou/uL (4.0-11.0)
[2020-10-05 17:59] LABS: ANION GAP 11 mmol/L (7-16); BUN 27 mg/dL (7-18); CALCIUM 8.3 mg/dL (8.5-10.1); CHLORIDE 110 mmol/L (98-107); CO2 21 mmol/L (21-32); CREATININE 3.3 mg/dL (0.7-1.3); GLUCOSE 199 mg/dL (74-106); POTASSIUM 4.4 mmol/L (3.5-5.1); SODIUM 142 mmol/L (136-145)
[2020-10-05 18:05] LABS: SGOT 20 U/L (15-37); SGPT 43 U/L (30-65); TOTAL BILIRUBIN < 0.1 mg/dL (0.2-1.0); TOTAL PROTEIN 6.2 g/dL (6.4-8.2)
[2020-10-05 18:23] LABS: APTT 24.9 Seconds (24.5-32.8); INR 0.95; PROTIME 10.4 Seconds (10.5-12.1)
[2020-10-05 21:21] VITALS: BP 128/73
--- NOTE | 2020-10-06 07:17 | EKG ---
[facility] [place] [employer] [place] [address] ELECTROCARDIOGRAM REPORT Name: ARAVIND MASSEY Room #: [facility] JOSE M Burgos#: [id number] Admission: 10/05/20 Attend Phys: Discharge: 10/05/20 Date of : 65 Report #: [id number] [facility] ED Test Date: 2020-10-05 Test Time: 17:25:08 Pat Name: ARAVIND MASSEY Department: Room: Gender: Extrusion Die Repair Manager: : 1965 Requested By: Adam Mckenzie Order Number: [id number] MD: Koffi Jolley Measurements Intervals [place] Rate: 66 P: -3 TN: 166 QRS: 9 QRSD: 92 T: 13 QT: 414 QTc: 434 Interpretive Statements Sinus rhythm Low voltage, precordial leads Baseline wander in lead(s) V6 Compared to ECG 09/19/2020 20:48:19 Low QRS voltage now present Electronically Signed On 10-06-2020 7:16:49 CDT by Koffi Jolley [email or web address] <ELECTRONICALLY SIGNED> By: Koffi Jolley MD, [facility] 10/06/20 0716 1725 24 Koffi Jolley MD, FACC /EPI
== END 2020-10-05 21:22 | disposition home or self-care (01) ==
LOC: ER 17:19
PROVIDERS: Emergency Medicine
DX: D53.9 Nutritional anemia, unspecified (principal); E11.22 Type 2 diabetes mellitus with diabetic chronic kidney disease; I12.9 Hypertensive chronic kidney disease with stage 1 through stage 4 chronic kidney disease, or unspecified chronic kidney disease; N18.9 Chronic kidney disease, unspecified; J44.9 Chronic obstructive pulmonary disease, unspecified; E78.5 Hyperlipidemia, unspecified; E66.9 Obesity, unspecified; Z86.2 Personal history of diseases of the blood and blood-forming organs and certain disorders involving the immune mechanism; Z88.6 Allergy status to analgesic agent; Z88.8 Allergy status to other drugs, medicaments and biological substances